=== PATIENT | female | born 1975 | race African-American/Black ===

== ENCOUNTER 2017-06-17 14:28 | Emergency (ER) | payer SELFPAY ==
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
[2017-06-17] MEDS: ACETAMINOPHEN 325 MG TAB PO ONE (15:53)
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
== END 2017-06-17 16:08 | disposition home or self-care (01) ==
LOC: ER 14:28
DX: G89.11 Acute pain due to trauma (principal); R51 Headache; M54.2 Cervicalgia; V43.52XA Car driver injured in collision with other type car in traffic accident, initial encounter; Y92.410 Unspecified street and highway as the place of occurrence of the external cause
CPT/HCPCS: 70450; 72050; 99283; 99284